=== PATIENT | male | born 2000 | race Two or more races ===

== ENCOUNTER 2023-01-02 11:29 | Emergency (ER) | payer OTHER, SELFPAY ==
--- NOTE | ~2023-01-02 | US_ITS ---
US scrotum doppler INDICATION: Left testicular pain TECHNIQUE: Testicular sonogram utilizing grayscale and color Doppler FINDINGS: The testes are normal in size and appearance. No focal lesions are seen. The right testes measures 4 x 2.2 x 2.7 cm centimeters, and the left testis measures 4.5 x 3 x 2.7 cm cm. There is vas cular flow to both testes. Left epididymis appears enlarged with increased vascularity of the left testicle, suspicious for epid idymoorchitis. There is a small left hydrocele. There is a left varicocele. IMPRESSION: 1. Prominent left epididymis with increased vascularity of the left epididymis and testicle, suspici ous for epididymoorchitis. 2: Left varicocele. 2: Small left hydrocele. Reviewed, dictated and finalized at location B. IMPRESSION: 1. Prominent left epididymis with increased vascularity of the left epididymis and testicle, suspicious for epididymoorchitis. 2: Left varicocele. 2: Small left hydrocele.
[2023-01-02 11:31] VITALS: BP 133/70; PULSE 63; RESP 18; TEMP 36.7; O2SAT 100
--- NOTE | 2023-01-02 12:01 | ED.MALEGU ---
HPI - Male Genitourinary General Chief complaint: Urogenital-Male Stated complaint: left testicle swelling Time Seen by Provider: 01/02/23 11:36 Source: patient and RN notes reviewed Mode of arrival: ambulatory Limitations: no limitations History of Present Illness HPI Narrative: This is a 22 year old male who presents for evaluation of left testicular pain and swelling. He states this started 5 days ago and his pain has gotten worse. His pain is worse with movment. He denies dysuria, penile discharge, nausea, vomiting, abdominal pain or fever. 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 Const: General: healthy appearing, no acute distress and alert Nutritional Appearance: well nourished HENMT: Head: normal to inspection Eyes: EOM: EOMs intact bilaterally Resp: Effort & Inspection: normal respiratory effort GI: GI Palp: Yes Soft to palpation, No Tenderness to palpation present (GI), No Guarding due to palpation present (GI) and No Rigid due to palpation Auscultation: normal bowel sounds : Penis: Yes uncircumcised Scrotum: scrotal swelling on the left Testes: epididymal tenderness on the left and testicular tenderness on the left Back/Spine/Pelvis: Back: no CVA tenderness Skin: General skin exam: normal color Rashes: no rashes Wounds: no wounds Neuro: General: patient oriented x3 and moves all extremities Cranial nerves: Yes CN's II-XII intact bilaterally Extrem: General: normal to inspection Psych: Mental Status: mental status grossly normal Affect: normal affect Attitude: cooperative Course Reevaluation(s) Reevaluation #1: I Discussed with US showing orchitis. Date: 01/02/23 Time: 13:52 Vital Signs Vital signs: Vital Signs Temperature 98.1 F 01/02/23 11:31 Pulse Rate 63 01/02/23 11:31 Respiratory Rate 18 01/02/23 11:31 Blood Pressure 133/70 01/02/23 11:31 Pulse Oximetry 100 01/02/23 11:31 Oxygen Delivery Room Air 01/02/23 11:31 Temperature 98.1 F 01/02/23 11:31 Pulse Rate 65 01/02/23 14:15 Respiratory Rate 20 01/02/23 14:15 Blood Pressure 125/74 01/02/23 14:15 Pulse Oximetry 100 01/02/23 14:15 Oxygen Delivery Room Air 01/02/23 11:31 MDM - Male Genitourinary MDM Narrative Medical decision making narrative: Patient presented with left testicular swelling, pain so US ordered to rule out torsion. UA ordered which was negative. US shows orchitis with good flow. He will be treated with antibiotics. He was given rocephin 0.5 mg IM in ER. He was discharged with prescription of doxycycline to cover possible STI. and levaquin for possible non STI. I discussed follow up with urologist. Differential Diagnosis Differential diagnosis: Likely urinary tract infection, urethritis and epididymitis Lab Data Attestation: I reviewed the patient's lab results. Labs: Lab Results 01/02/23 Range/Units 12:03 Urine Color Yellow (Yellow) Urine Appearance Clear (Clear) Urine pH 6.0 (5.0-9.0) Ur Specific [place] 1.026 (1.001-1.035) Urine Protein Negative (Negative) mg/dL Urine Glucose (UA) Negative (Negative) mg/dL Urine Ketones Negative (Negative) mg/dL Ur Blood (Man) Negative (Negative) Urine Nitrate Negative (Negative) Urine Bilirubin Negative (Negative) Urine Urobilinogen 0.2 (<2.0) mg/dL Leukocy
[2023-01-02] MEDS: HYDROcodone/acetaminophen (*CRX) 5-325 MG TABLET 1 TAB PO (12:14)
[2023-01-02] MEDS: ONDANSETRON HCL ODT 4 MG TABLET PO (12:14)
[2023-01-02 12:15] LABS: Appearance Urine Clear (Clear); Bilirubin Urine Negative (Negative); Blood Urine Negative (Negative); Color Urine Yellow (Yellow); Glucose Urine UA Negative (Negative); Ketones Urine Negative (Negative); Leukocyte Esterase Ur Negative LEU/UL (Negative); Nitrate Urine Negative (Negative); Protein Urine Negative (Negative); Specific Grav Ur 1.026 (1.001-1.035); Urobilinogen Urine 0.2 mg/dL (<2.0)
[2023-01-02] MEDS: KETOROLAC (*BKC) 60 MG/2 ML VIAL IM (12:15)
[2023-01-02 12:44] LABS: Add Urine Microscopic? NO
[2023-01-02] MEDS: cefTRIAXone 1 GM VIAL 0.5 GM IM (13:25)
[2023-01-02] MEDS: WATER, STERILE FOR INJECTION 10 ML VIAL XX (13:26)
[2023-01-02 14:07] LABS: Chlamydia trachomatis NOT DETECTED (NOT DETECTE); Neisseria gonorrhoeae PCR NOT DETECTED (NOT DETECTE)
[2023-01-02 14:15] VITALS: BP 125/74; PULSE 65; RESP 20; O2SAT 100
== END 2023-01-02 14:16 | disposition home or self-care (01) ==
PROVIDERS: Emergency Provider General Practice
DX: N45.1 Epididymitis (principal)
CPT/HCPCS: 76870; 81003; 87491; 87591; 93976; 96372; 99284; A9270; J0696; J1885

== ENCOUNTER 2023-04-13 14:40 | Emergency (ER) | payer OTHER, SELFPAY ==
--- NOTE | ~2023-04-13 | US_ITS ---
EXAMINATION: US scrotum doppler DATE: 04/13/2023 16:36 INDICATION: left testicular swelling and pain . TECHNIQUE: Grayscale and Doppler ultrasound images of the testes were obtained. COMPARISON: 01/02/2023. FINDINGS: The right testis measures 3.9 x 2.1 x 2.6 cm. The left testis measures 3.7 x 2.6 x 2.8 cm. No testicular mass. There is normal vascular flow to both testes. The right epididymis is normal with normal vascular flow. The left epididymis enlarged and hypervascular. No varicocele. Small left hydr ocele. IMPRESSION: Sonographic findings may reflect left epididymitis in the appropriate clinical context. Small left hy drocele. Reviewed, dictated and finalized at location K. 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 Small left hydrocele.
[2023-04-13 14:53] VITALS: BP 142/93; PULSE 72; RESP 18; TEMP 36.1; O2SAT 100
[2023-04-13 16:18] LABS: Appearance Urine Clear (Clear); Bilirubin Urine Negative (Negative); Blood Urine Negative (Negative); Color Urine Yellow (Yellow); Glucose Urine UA Negative (Negative); Ketones Urine Negative (Negative); Leukocyte Esterase Ur Negative LEU/UL (Negative); Nitrate Urine Negative (Negative); Protein Urine Negative (Negative); Specific Grav Ur 1.023 (1.001-1.035); pH Urine 7.5 (5.0-9.0)
[2023-04-13 16:33] LABS: Add Urine Microscopic? NO
--- NOTE | 2023-04-13 17:24 | ED.MALEGU ---
HPI - Male Genitourinary General Chief complaint: Urogenital-Male Stated complaint: left tesicle pain Time Seen by Provider: 04/13/23 15:56 History of Present Illness HPI Narrative: patient presenting with several hours of left testicular pain and swelling, has had similar symptoms in the past and resolved with antibiotics. Denies being sexually active, has not had any sexual activity for at least 4 months Related Data Allergies Allergy/AdvReac Type Severity Reaction Status Date / Time No Known Allergies Allergy Verified 04/13/23 15:54 Review of Systems Review of Systems: CONST: No fever. HEENT: No sore throat C/V: No chest pain RESP: No cough GI: no abdominal pain : left testicular pain M/S: No joint pain. SKIN: No rash. NEURO: [No headache or focal numbness or weakness] PSYCH: [No depression] [facility] Past Medical History Medical History (Updated 04/13/23 @ 17:22 by Ibis Monaco MD) Patient denies medical problems Surgical History Surgical History (Updated 01/02/23 @ 12:08 by Sherri Barroso MD) No pertinent past surgical history Social History Social History (Updated 01/02/23 @ 12:08 by Sherri Barroso MD) Smoking status: Never smoker Exam Narrative: EXAMINATION OF ORGAN SYSTEMS/BODY AREAS: Constitutional: Vital signs per nursing GENERAL:[No acute distress, non-toxic appearing.] HEAD: Normal with no signs of head trauma. EYES: EOMI, conjunctiva normal ENT: Hearing grossly intact LUNGS: Nonlabored breathing. HEART: [Regular rate and rhythm] ABD: [Soft], [nontender to palpation] : Some tenderness/swelling L testicle; cremaster reflex intact EXT: Normal range of motion SKIN: [No rashes or lesions.] NEURO: [Alert and oriented x 3. No gross focal sensory or strength deficits.] PSYCH: Normal affect Course Vital Signs Vital signs: Vital Signs Temperature 97.0 F L 04/13/23 14:53 Pulse Rate 72 04/13/23 14:53 Respiratory Rate 18 04/13/23 14:53 Blood Pressure 142/93 H 04/13/23 14:53 Pulse Oximetry 100 04/13/23 14:53 Temperature 97.0 F L 04/13/23 14:53 Pulse Rate 72 01/20/24 14:53 Respiratory Rate 18 04/13/23 14:53 Blood Pressure 142/93 H 04/13/23 14:53 Pulse Oximetry 100 04/13/23 14:53 MDM - Male Genitourinary MDM Narrative Medical decision making narrative: 23-year-old male presenting with left testicular pain and swelling, with tenderness and swelling on exam, I have low concern for torsion without severe tenderness or pain, ultrasound does show epididymitis. Patient is not sexually active and had already been treated for STDs since his last sexual activity, so I will therefore start him on levofloxacin and have him follow-up with urology With return precautions. Patient agreeable to this plan. Lab Data Labs: Lab Results 04/13/23 Range/Units 16:12 Urine Color Yellow (Yellow) Urine Appearance Clear (Clear) Urine pH 7.5 (5.0-9.0) Ur Specific [place] 1.023 (1.001-1.035) Urine Protein Negative (Negative) mg/dL Urine Glucose (UA) Negative (Negative) mg/dL Urine Ketones Negative (Negative) mg/dL Ur Blood (Man) Negative (Negative) Urine Nitrate Negative (Negative) Urine Bilirubin Negative (Negative) Urine Urobilinogen 1.0 (<2.0) mg/dL Leukocyte Esterase Rfl Negative (Negative) SCAR/UL C. trachomatis (PCR) Not detected (NOT DETECTE) N. gonorrhoeae (PCR) Not detected (NOT DETECTE) Discharge Plan Discharge Clinical Impression: Acute epididymitis Patient Disposition: Home, Self-Care Condition: Stable Instructions: Antibiotic Form, Epididymitis (ED) Additional Instructions: take antibiotics as prescribed to come back to the ER for any further issues. Take naproxen or ibuprofen as needed and wear the support. Follow-up with a urologist. Prescriptions: New levofloxacin 500 mg tablet 500 mg PO DAILY 10 Days Qty: 10 0RF No Action levofloxa
[2023-04-13 17:44] LABS: Chlamydia trachomatis NOT DETECTED (NOT DETECTE); Neisseria gonorrhoeae PCR NOT DETECTED (NOT DETECTE)
== END 2023-04-13 17:29 | disposition home or self-care (01) ==
PROVIDERS: Emergency Provider Emergency Medicine
DX: N45.1 Epididymitis (principal)
CPT/HCPCS: 76870; 81003; 87491; 87591; 93976; 99284